=== PATIENT | male | born 1970 | race Caucasian/White ===

== ENCOUNTER 2019-06-17 19:26 | Emergency (ER) | payer MEDICARE, MEDICAID, SELFPAY ==
[2019-06-17 19:34] VITALS: BP 129/85; PULSE 98; RESP 20; TEMP 36.6; O2SAT 100
--- NOTE | 2019-06-17 19:38 | ED.URI ---
HPI - URI/Sore Throat General Chief Complaint: Upper Respiratory Symptoms Stated Complaint: SINUS ACHES LUNGS HURT BODY HURTS Time Seen by Provider: 06/17/19 19:38 Source: patient and family Mode of arrival: Ambulatory Limitations: no limitations History of Present Illness HPI Narrative: 48-year-old male comes in with complaint of muscle aches, runny nose, sinus pressure and feeling like his lungs are taking. He has had a cough which has been nonproductive. He denies any shortness of breath denies any lightheadedness or passing out. No nausea, no vomiting, no other diarrhea constipation symptoms. No urinary symptoms. Patient states no rashes or skin changes. He states no medical problems than a titanium hip, no other surgeries. No allergies to medications. He does smoke tobacco, he denies alcohol or illicit. He did express concern about rome virus he has not been out of the country, he has not been in touch with other individuals from the 5 countries that are currently included in the CDC evaluation recommendations, he has not been in touch with an individual that has known rome-virus. Related Data Home Medications Medication Instructions Recorded Confirmed AMOXICILLIN (Amoxil / Trimox) 250 mg PO #0 09/16/06 HYDROCODONE/ACET 5/500 - 0 PO * DOSE/FREQUENCY #0 09/16/06 (Hydrocodon-Acetaminophen 5-500) Allergies Allergy/AdvReac Type Severity Reaction Status Date / Time INGREDIENT: NKA - NO KNOWN Allergy Unknown Uncoded 07/29/17 11:47 ALLERGIES Review of Systems Review of Systems ROS Unobtainable: All systems reviewed & are unremarkable except as noted in HPI and below Patient History Surgical History (Updated 06/17/19 @ 19:52 by Ursula Urban DO) History of hip replacement (Acute) Social History Smoking Status: Current every day smoker Smoking Status: Current every day smoker Substance Use Type: does not use Exam Narrative Exam Narrative: GEN: well nourished, well appearing male, alert and oriented x 3, patient appears to be in mild distress. HEENT: Atraumatic, pupils are equal round reactive to light, extraocular movements are intact, nares show mild clear rhinorrhea, TMs are clear with no fluid. Throat is clear without any exudates, erythema, tonsillar enlargement or uvular deviation HEART: Regular rate and rhythm without murmur, clicks, rubs. LUNGS:Lungs clear to auscultation, no wheezes, rales, crackles, chest moves symmetrically, no tachypnea accessory muscle use ABD:bowel sounds normal, soft, non-tender, no guarding, rebound, rigidity, no masses noted, no hepatosplenomegaly :No CVA tenderness MSCL: Non-tender,full range of motion, normal gait NEURO:CN 2-12 intact, sensation normal SKIN: Rash, erythema or skin changes. Initial Vital Signs Initial Vital Signs: Vital Signs Temperature 98 F 06/17/19 19:34 Pulse Rate 98 H 06/17/19 19:34 Respiratory Rate 20 06/17/19 19:34 Blood Pressure 129/85 06/17/19 19:34 Pulse Oximetry 100 06/17/19 19:34 Course Orders Ordered: ED Orders 06/17/19 19:47 XR chest 2V Stat 06/17/19 19:58 Influenza A & B (PCR) Stat Vital Signs Vital signs: Vital Signs - 8 hr 06/17/19 19:34 Temperature 98 F Pulse Rate 98 H Respiratory Rate 20 Blood Pressure 129/85 Pulse Oximetry 100 MDM - URI/Sore Throat Lab Data Attestation: I reviewed the patient's lab results. Labs: Lab Results 06/17/19 Range/Units 19:58 Influenza A (RT-PCR) Flu a negative (NEGATIVE) Influenza B (RT-PCR) Flu b negative (NEGATIVE) Imaging Data Chest x-ray: Radiologist's Impression: [address] [id number] XRay Report Signed Patient: Mian Mckenna [facility]#: [id number] : 1970Acct:[id number] Age/Sex: 48 / MDate of Service: 06/17/19 Loc: ED Accession Number: [id number] Procedure: XR chest 2V Ordering Provider: Ursula Urban D.O. PROCEDURE: XR CHEST 2V INDICATIONS: muscles aches, lungs hurt runny nose FLU? TECHNIQUE: 2 views of the chest were acquired. COMPARISON: None. FINDINGS: Surgical changes and devices: None. Lungs and pleura: Lungs are clear. No pleural effusions or pneumothorax. Mediastinum: Mediastinal contours are normal. Heart size is normal. Bones and chest wall: No suspicious bony abnormalities. Soft tissues appear unremarkable. IMPRESSION: No acute pulmonary process. Dictated by: Marisol Garsia M.D. on 06/17/2019 at 20:06 Approved by: Marisol Garsia M.D. on 06/17/2019 at 20:07 [facility] Narrative Medical decision making narrative: Discussed with patient some of his symptoms are consistent with influenza he would still be in the window within 48 hours of symptom onset for potentially having Tamiflu so testing with influenza swab. He has had some cough and lung discomfort so chest x-ray was included. Expressed concern about rome virus reviewed the most recent CDC guidelines with the patient and that he currently does not meet guidelines for testing. Influenza negative. Chest x-ray was negative. Patient's vitals stable in the department. Discharge Plan Departure Patient Disposition: Home Clinical Impression: Upper respiratory infection Qualifiers: URI type: unspecified URI Qualified Code(s): J06.9 - Acute upper respiratory infection, unspecified Discharge Date/Time: 06/17/19 20:45 Activity Restrictions/Additional Instructions: Follow-up in the next 7-10 days if your symptoms have not resolved. Make sure you are drinking plenty of fluids. You may take Tylenol and/or ibuprofen as needed for fever. Return to the ER for persistent fevers, passing out, new shortness of breath, new or worsening chest pain or pressure, coughing up blood, swelling in your extremities, persistent vomiting, black or bloody stools or other new or concerning symptoms Prescriptions: No Action AMOXICILLIN (Amoxil / Trimox) 250 mg PO Qty: 0 RF: 0 HYDROCODONE/ACET 5/500 - (Hydrocodon-Acetaminophen 5-500) 0 PO * [place] DOSE/FREQUENCY Qty: 0 RF: 0
--- NOTE | 2019-06-17 19:47 | DI.RAD.S_ITS ---
PROCEDURE: XR CHEST 2V INDICATIONS: muscles aches, lungs hurt runny nose FLU? TECHNIQUE: 2 views of the chest were acquired. COMPARISON: None. FINDINGS: Surgical changes and devices: None. Lungs and pleura: Lungs are clear. No pleural effusions or pneumothorax. Mediastinum: Mediastinal contours are normal. Heart size is normal. Bones and chest wall: No suspicious bony abnormalities. Soft tissues appear unremarkable. IMPRESSION: No acute pulmonary process. Dictated by: Marisol Garsia M.D. on 06/17/2019 at 20:06 Approved by: Marisol Garsia M.D. on 06/17/2019 at 20:07
[2019-06-17 20:38] LABS: Influenza A - CEPHEID Flu A NEGATIVE (NEGATIVE); Influenza B - CEPHEID Flu B NEGATIVE (NEGATIVE)
== END 2019-06-17 20:45 | disposition home or self-care (01) ==
PROVIDERS: Emergency Provider Emergency Medicine
DX: J06.9 Acute upper respiratory infection, unspecified (principal); R05 Cough
CPT/HCPCS: 71046; 87502; 99283

== ENCOUNTER 2019-10-05 12:04 | Emergency (ER) | payer MEDICARE, MEDICAID, SELFPAY ==
[2019-10-05 12:10] VITALS: BP 162/100; PULSE 94; RESP 16; TEMP 36.8; O2SAT 98
--- NOTE | 2019-10-05 12:16 | DI.RAD.S_ITS ---
PROCEDURE: XR CHEST 2V INDICATIONS: pain sp fall TECHNIQUE: 2 views of the chest were acquired. COMPARISON: [facility], CR, XR CHEST 2V, 06/17/2019, 19:49. FINDINGS: Surgical changes and devices: None. Lungs and pleura: Hyperinflation consistent with COPD. Biapical densities are likely surgical scars. No acute pulmonary opacity. Possible nodule in the posterior sulcus seen on the lateral view only. No pleural effusions or pneumothorax. Mediastinum: Mediastinal contours are normal. Heart size is normal. Bones and chest wall: No suspicious bony abnormalities. Soft tissues appear unremarkable. IMPRESSION: 1. No acute cardiopulmonary disease. 2. COPD. 3. Possible nodule in the posterior sulcus seen on the lateral view only. A non-emergent chest CT is suggested for followup. Dictated by: Martin Charles M.D. on 10/05/2019 at 12:38 Approved by: Martin Charles M.D. on 10/05/2019 at 12:43
--- NOTE | 2019-10-05 12:18 | ED.FALL ---
HPI - Fall <DIOGENES Rinaldi-BC - Last Filed: 10/05/19 14:36> General Chief Complaint: Fall Stated Complaint: hit head on log, body feels like it got ran over Time Seen by Provider: 10/05/19 12:06 Source: patient Mode of arrival: Ambulatory Limitations: no limitations History of Present Illness HPI Narrative: The patient is a 48-year-old male current smoker with history of hip replacement who presents with a chief complaint of general muscle aches. [place] hit his head and then went to an outside medical facility. He states that since then he is having general muscle aches on his chest and back. He states that this is started immediately after his fall, but has gotten slightly worse. He is concerned because the outside facility number check x-rays of his chest. He denies any cough, denies any fever. States that his pain gets worse with movement of his arms and general movement and taking deep breath. Related Data Home Medications Medication Instructions Recorded Confirmed cyclobenzaprine 1 mg PO TID PRN 10/05/19 10/05/19 ibuprofen 600 mg PO TID PRN 10/05/19 10/05/19 Previous Rx's Medication Instructions Recorded cyclobenzaprine 10 mg PO TID PRN #14 tab 10/05/19 lidocaine 1 patch TOP DAILY PRN #15 each 10/05/19 naproxen 500 mg PO BID PRN #14 tab 10/05/19 Allergies Allergy/AdvReac Type Severity Reaction Status Date / Time No Known Drug Allergies Allergy Verified 10/05/19 12:13 Review of Systems <LAUREL Rinaldi - Last Filed: 10/05/19 14:36> Review of Systems Narrative: GENERAL: Denies chills, fatigue, malaise, fever, sweats. HEENT: Denies sinus pain, ear pain, sore throat, difficulty swallowing, dizziness. RESPIRATORY: See HPI CARDIOVASCULAR: Denies chest pain, palpitations, orthopnea, edema, GASTROINTESTINAL: Denies nausea, vomiting, abdominal pain, diarrhea, constipation, melena. : Denies dysuria, frequency, incontinence, hematuria, urinary retention. MUSCULOSKELETAL: denies weakness, joint pain, or bony pain SKIN: Denies rash, skin lesions, or other NEUROLOGIC: Denies weakness, headache, numbness, change in speech, confusion, seizures, incoordination. PSYCHIATRIC: No concerning psychosocial issues. 12 point review of systems is negative except for those stated above Patient History <RAY Rinaldi - Last Filed: 10/05/19 14:36> Surgical History History of hip replacement (Acute) Social History Smoking Status: Current every day smoker Smoking Status: Current every day smoker alcohol intake frequency: 0-2 drinks per day Substance Use Type: does not use Exam <RAY Rinaldi - Last Filed: 10/05/19 14:36> Narrative Exam Narrative: GENERAL: This is a well-nourished, well-developed patient, no acute distress HEAD: Atraumatic. Normocephalic. No temporal or scalp tenderness. EYES: Pupils equal round and reactive. Extraocular motions intact. No scleral icterus. No injection or drainage. ENT: Nose without bleeding, purulent drainage or septal hematoma. Throat without erythema, tonsillar hypertrophy or exudate. Uvula midline. Airway patent. NECK: Trachea midline. No JVD or lymphadenopathy. Supple, nontender, no meningeal signs. CARDIOVASCULAR: Regular rate and rhythm RESPIRATORY: Clear to auscultation. Breath sounds equal bilaterally. No wheezes, rales, or rhonchi. No cough. No increased respiratory effort. Pain to palpation anterior chest wall of left side. Slight plan on anterior posterior chest wall compression, no pain on lateral chest wall compression GASTROINTESTINAL: Abdomen soft, non-tender, nondistended. No hepato-splenomegaly, or palpable masses. No guarding. EXTREMITIES: No clubbing, cyanosis, or edema. No joint tenderness, effusion, or edema noted. BACK: Nontender without deformity or crepitance. No flank tenderness. NEURO: AOx3. Stable gait. No gross cranial nerve deficit. SKIN: No rash or erythema on visible skin. No ecchymosis noted on chest wall. Initial Vital Signs Initial Vital Signs: Vital Signs Temperature 98.3 F 10/05/19 12:10 Pulse Rate 94 H 10/05/19 12:10 Respiratory Rate 16 10/05/19 12:10 Blood Pressure 162/100 H 10/05/19 12:10 Pulse Oximetry 98 10/05/19 12:10 <Renzo Amado DO - Last Filed: 10/05/19 14:36> Initial Vital Signs Initial Vital Signs: Vital Signs Temperature 98.3 F 10/05/19 12:10 Pulse Rate 94 H 10/05/19 12:10 Respiratory Rate 16 10/05/19 12:10 Blood Pressure 162/100 H 10/05/19 12:10 Pulse Oximetry 98 10/05/19 12:10 Scores <RAY Rinaldi - Last Filed: 10/05/19 14:36> GCS Gia coma scale eye opening: Spontaneous Gia coma scale verbal response: Orientated Gia coma scale motor response: Obey commands Chandler coma scale total score: 15 Course <RAY Rinaldi - Last Filed: 10/05/19 14:36> Orders Ordered: ED Orders 10/05/19 12:16 XR chest 2V Stat Vital Signs Vital signs: Vital Signs - 8 hr 10/05/19 12:10 10/05/19 13:52 Temperature 98.3 F Pulse Rate 94 H 69 Respiratory Rate 16 16 Blood Pressure 162/100 H Blood Pressure [Left Arm] 162/90 H Pulse Oximetry 98 99 <Renzo Amado DO - Last Filed: 10/05/19 14:36> Orders Ordered: ED Orders 10/05/19 12:16 XR chest 2V Stat Vital Signs Vital signs: Vital Signs - 8 hr 10/05/19 12:10 10/05/19 13:52 Temperature 98.3 F Pulse Rate 94 H 69 Respiratory Rate 16 16 Blood Pressure 162/100 H Blood Pressure [Left Arm] 162/90 H Pulse Oximetry 98 99 MDM - Fall <RAY Rinaldi - Last Filed: 10/05/19 14:36> Imaging Data Chest x-ray: Radiologist's Impression: [address] [place] [id number] XRay Report Signed Patient: Mian Mckenna#: [id number] : 1970Acct:[id number] Age/Sex: 48 / MDate of Service: 10/05/19 Loc: ED Accession Number: [id number] Procedure: XR chest 2V Ordering Provider: Catron,Ursula PROFESSOR OF ENGLISH-BC PROCEDURE: XR CHEST 2V INDICATIONS: pain sp fall TECHNIQUE: 2 views of the chest were acquired. COMPARISON: [facility], CR, XR CHEST 2V, 06/17/2019, 19:49. FINDINGS: Surgical changes and devices: None. Lungs and pleura: Hyperinflation consistent with COPD. Biapical densities are likely surgical scars. No acute pulmonary opacity. Possible nodule in the posterior sulcus seen on the lateral view only. No pleural effusions or pneumothorax. Mediastinum: Mediastinal contours are normal. Heart size is normal. Bones and chest wall: No suspicious bony abnormalities. Soft tissues appear unremarkable. IMPRESSION: 1. No acute cardiopulmonary disease. 2. COPD. 3. Possible nodule in the posterior sulcus seen on the lateral view only. A non-emergent chest CT is suggested for followup. Dictated by: Martin Charles M.D. on 10/05/2019 at 12:38 Approved by: Martin Charles M.D. on 10/05/2019 at 12:43 MDM Narrative Medical decision making narrative: The patient is a 48-year-old male with history of a fall off of a log. Records were obtained from outside facility which show a visit on 09/26/2019. The patient appears well and nontoxic. He has pain to palpation of the left side of his chest wall, and pain upon moving his arms in his chest. X-ray shows no acute fractures. Does show a possible nodule, which I discussed with the patient and discussed that he needs follow-up regarding this. Did give patient a prescription of naproxen, cyclobenzaprine, lidocaine patch. Discussed the possibility of non musculoskeletal chest pain, which would need further investigation i.e. labs and imaging but the patient declines any further workup at this point time. Given his exam, this is likely musculoskeletal pain. He has been hemodynamically stable throughout his stay in the emergency department, did receive incentive spirometer training. Discussed at length follow up with primary care provider. Patient has no questions or concerns upon discharge and states understanding return precautions as well as follow-up care. Discharge Plan Departure Patient Disposition: Home Clinical Impression: Chest wall contusion Qualifiers: Encounter type: initial encounter Laterality: left Qualified Code(s): S20.212A - Contusion of left front wall of thorax, initial encounter Discharge Date/Time: 10/05/19 14:25 Instructions: How to Use an Incentive Spirometer, DI for Rib Contusion Activity Restrictions/Additional Instructions: Thank you for trusting us with your care today As I discussed, your x-ray shows no fractures or acute findings. However does show a possible nodule that needs follow-up. I have given you a prescription of naproxen l. This is an NSAID. Do not combine it with other NSAIDs such as Aleve or ibuprofen. I suggest taking it with some food, as it can irritate your stomach. I also sent a prescription of cyclobenzaprine or Flexeril. This can be sedating. Do not take and drive. Please follow-up with primary care provider in the next few days I did send three prescriptions to [facility] in [place] As discussed please follow-up with primary care provider in the next few days I have given contact information at [facility] district resource officer Please come back to the emergency department for any acute concerns Prescriptions: New lidocaine 5 % adhesive patch,medicated 1 patch TOP DAILY PRN (Reason: pain) Qty: 15 RF: 0 naproxen 500 mg tablet 500 mg PO BID PRN (Reason: pain) Qty: 14 RF: 0 cyclobenzaprine 10 mg tablet 10 mg PO TID PRN (Reason: muscle spasm) Qty: 14 RF: 0 No Action cyclobenzaprine 10 mg tablet 1 mg PO TID PRN (Reason: Muscle Spasm) RF: 0 ibuprofen 600 mg tablet 600 mg PO TID PRN (Reason: Pain (Scale Score 7-10)) RF: 0 Referrals: [facility] [Outside] <Renzo Amado, DO - Last Filed: 10/05/19 14:36> [facility] Dr Amado Co-Sign Statement: I was available for consultation during this patient's emergency department visit. This chart is signed by myself for administrative purposes only. I did not have direct contact with this patient during this visit. They were seen independently by the APC.
[2019-10-05 13:52] VITALS: BP 162/90; PULSE 69; RESP 16; O2SAT 99
== END 2019-10-05 14:25 | disposition home or self-care (01) ==
PROVIDERS: Emergency Provider Nurse Practitioner Family
DX: S20.212A Contusion of left front wall of thorax, initial encounter (principal); W19.XXXA Unspecified fall, initial encounter
CPT/HCPCS: 71046; 99282; 99283